=== PATIENT | female | born 1950 | race Caucasian/White ===

== ENCOUNTER 2017-03-24 12:55 | Emergency (ER) | payer MEDICARE, MEDICAID ==
[~2017-03-24 12:55] MED LIST: MEDR4PAK3 PO; ZYRT10TA12 PO
[2017-03-24 13:00] VITALS: BP 123/64; PULSE 92; RESP 20; TEMP 98; O2SAT 97
--- NOTE | 2017-03-24 13:19 | PD ---
HPI Chief Complaint: Musculoskeletal Complaint Time Seen by Provider: 13:00 Travel History International Travel<30 days: No Contact w/Intl Traveler<30days: No Traveled to known affect area: No History of Present Illness HPI 66-year-old female presents to the emergency room for evaluation of left elbow pain for the past 2-3 weeks. Patient states she always opens doors and then stops them with her elbow and believes she may have "done it one too many times. " She reports for the past 3 weeks she has had burning/stinging pain localized to the left distal humerus without radiation. She has been taking Tylenol without any relief in symptoms. States she came in today because she was sick of it hurting. States she has had fractures in the past that don't show up on x -ray and is requesting MRI. Denies paresthesias or loss of range of motion. PFSH Past Medical History High Cholesterol: Yes Cerebrovascular Accident: Yes (2007) Diminished Hearing: No Shingles: Yes (2006) Menopausal: Yes Dilation and Curettage (D&C): Yes Past Surgical History Section: Yes Hysterectomy: Yes (PARTIAL) Social History Alcohol Use: No Tobacco Use: Yes (/ PPD) Substance Use: No Allergies-Medications (Allergen,Severity, Reaction): Coded Allergies: No Known Allergies (Unverified , 03/24/17) Reported Meds & Prescriptions Reported Meds & Active Scripts Active Reported Aspirin 81 (Aspirin) 81 Mg Tabdr 162 Mg PO DAILY Lipitor (Atorvastatin Calcium) 80 Mg Tab 80 Mg PO HS Review of Systems Except as stated in HPI: all other systems reviewed are Neg Physical Exam Narrative GENERAL: Well-nourished, well-developed female in no acute distress. Afebrile. Ambulatory. SKIN: Focused skin assessment warm/dry. No erythema or ecchymosis. HEAD: Normocephalic. EYES: No scleral icterus. No injection or drainage. NECK: Supple, trachea midline. No JVD or lymphadenopathy. CARDIOVASCULAR: Regular rate and rhythm without murmurs, gallops, or rubs. RESPIRATORY: Breath sounds equal bilaterally. No accessory muscle use. MUSCULOSKELETAL: No cyanosis. 2+ pupils. Radial, ulnar, and median nerves intact. Full range motion of the left elbow. No edema. Data Data Last Documented VS Vital Signs Date Time Temp Pulse Resp B/P Pulse Ox O2 Delivery O2 Flow Rate FiO2 03/24/17 13:35 16 03/24/17 13:00 98.0 92 123/64 97 Orders Elbow, Complete (4 Vws) (03/24/17 ) [facility] Medical Decision Making Medical Screen Exam Complete: Yes Emergency Medical Condition: Yes Medical Record Reviewed: Yes Differential Diagnosis Contusion, abrasion, sprain, strain, fracture Narrative Course 66-year-old female presents to the emergency room for evaluation of left elbow pain for the past 3 weeks. States she uses her elbow to catch the door a lot and believes when she used it 3 weeks ago it injured her arm. Left upper extremity is neurovascularly intact with 2+ radial pulse. Full range of motion of the elbow. No specific bony tenderness to palpation, erythema, ecchymosis, or edema. X-ray is negative. Likely epicondylitis or contusion. Jewel wrap applied. Patient told to follow-up with a primary care physician or return for worsening symptoms. She understands and agrees to plan. Diagnosis Primary Impression: Left elbow contusion Referrals: Primary Care Physician Patient Instructions: Contusion in Adults (ED), General Instructions Additional Instructions: Rest and drink plenty of fluids. Take Tylenol as directed, as needed for pain. Jewel wrap and apply ice to the affected area for 20 minutes at a time, as needed for pain and swelling. Follow-up with a primary care physician. Return to the emergency room for worsening symptoms. Med/Other Pt SpecificInfo: Prescription(s) given Disposition: 01 DISCHARGE HOME Condition: Stable Melissa Porter Mar 24, 2017 13:19
[2017-03-24] MEDS ORDERED: ASPI-110 PO (13:39)
[2017-03-24] MEDS ORDERED: LIPI80TA PO (13:39)
--- NOTE | 2017-03-24 13:43 | RADRPT ---
EXAM DATE/TIME: 03/24/2017 13:23 [facility] COMPARISON: No previous studies available for comparison. INDICATIONS : Left elbow pain x 3 weeks after bumped on wall. MEDICAL HISTORY : None. SURGICAL HISTORY : None. ENCOUNTER: Initial ACUITY: 3 weeks PAIN SCORE: 6/10 LOCATION: Left elbow FINDINGS: Multiple view examination of the left elbow demonstrates soft tissue swelling without joint effusion, or fracture. The osseous structures are in normal alignment. Bony mineralization is normal. CONCLUSION: Soft tissue swelling without fracture. Guido Monique MD on March 24, 2017 at 13:40 Board Certified Radiologist. This report was verified electronically.
== END 2017-03-24 14:15 | disposition home or self-care (01) ==
LOC: PHEFT 12:55
DX: S50.02XA Contusion of left elbow, initial encounter (principal); W22.8XXA Striking against or struck by other objects, initial encounter; Y93.89 Activity, other specified; Y92.9 Unspecified place or not applicable
CPT/HCPCS: 73080; 99283

== ENCOUNTER 2018-01-07 10:36 | Emergency (ER) | payer MEDICARE, MEDICAID ==
[~2018-01-07] VITALS: Ht 167.6 cm; Wt 69.0 kg
[~2018-01-07 10:36] MED LIST changes: +ASPI1TAB57 PO; +LIPI80TA PO; -MEDR4PAK3 PO; -ZYRT10TA12 PO
[2018-01-07 10:40] VITALS: BP 128/67; PULSE 90; RESP 16; TEMP 98.6; O2SAT 95
--- NOTE | 2018-01-07 11:36 | PD ---
HPI Chief Complaint: Pain: Acute or Chronic Time Seen by Provider: 10:57 Travel History International Travel<30 days: No Contact w/Intl Traveler<30days: No Traveled to known affect area: No History of Present Illness HPI 67-year-old female here with left rib pain 3 days. She reports she felt a pop and immediate pain to her left lateral ribs when she reached over a chair attempting to reach her cell phone. She denies shortness of breath. The pain is reproducible to palpation of the ribs and deep inspiration. Symptom severity is moderate. Has not attempted any [id number] medications for symptom relief. PFSH Past Medical History Hx Anticoagulant Therapy: Yes (162 ASA DAILY) Cardiovascular Problems: Yes (CHOL) High Cholesterol: Yes Cerebrovascular Accident: Yes (CVA) Coronary Artery Disease: Yes Diabetes: No Diminished Hearing: No Shingles: Yes (2006) Tetanus Vaccination: Unknown Influenza Vaccination: No ?: Not Menopausal: Yes Dilation and Curettage (D&C): Yes Past Surgical History Section: Yes Hysterectomy: Yes (PARTIAL) Social History Alcohol Use: No Tobacco Use: Yes (09/09 PPD) Substance Use: No Allergies-Medications (Allergen,Severity, Reaction): Coded Allergies: No Known Allergies (Unverified Adverse Reaction, Unknown, 01/07/18) Reported Meds & Prescriptions Reported Meds & Active Scripts Active Reported Aspirin 81 (Aspirin) 81 Mg Tabdr 162 Mg PO DAILY Lipitor (Atorvastatin Calcium) 80 Mg Tab 80 Mg PO HS Review of Systems Except as stated in HPI: all other systems reviewed are Neg General / Constitutional: No: Fever Eyes: No: Visual changes HENT: No: Headaches Cardiovascular: No: Chest Pain or Discomfort Respiratory: No: Shortness of Breath Physical Exam Narrative GENERAL: Alert and well-appearing 67-year-old female SKIN: Warm and dry. HEAD: Normocephalic. EYES: No injection or drainage. NECK: Supple CARDIOVASCULAR: Regular rate and rhythm. + Tenderness to the left anterior ribs. No palpable fracture or crepitus. RESPIRATORY: Breath sounds equal bilaterally. No accessory muscle use. Even and equal chest rise GASTROINTESTINAL: Abdomen soft, non-tender, nondistended. MUSCULOSKELETAL: No cyanosis, or edema. BACK: Nontender without obvious deformity. No CVA tenderness. Data Data Last Documented VS Vital Signs Date Time Temp Pulse Resp B/P (MAP) Pulse Ox O2 Delivery O2 Flow Rate FiO2 01/07/18 10:40 98.6 90 16 128/67 (87) 95 Orders Orders Ribs, Uni (W/Exp Cxr-Min 3vw) (01/07/18 ) [facility] Medical Decision Making Medical Screen Exam Complete: Yes Emergency Medical Condition: Yes Differential Diagnosis Rib contusion, fracture, pneumothorax Narrative Course 67-year-old female with left rib pain 4 days. Pain is reproducible. X-ray is negative for fracture, pneumothorax, acute abnormality. Findings were discussed with patient. She is stable and ready for discharge Diagnosis Primary Impression: Rib contusion Qualified Codes: S20.212A - Contusion of left front wall of thorax, initial encounter Referrals: Primary Care Physician Additional Instructions: Pain medication as directed. Avoid heavy lifting or strenuous activity. Follow-up with her primary doctor. Disposition: 01 DISCHARGE HOME Condition: Stable Mckayla Mares January 07, 2018 11:36
--- NOTE | 2018-01-07 11:43 | RADRPT ---
EXAM DATE/TIME: 01/07/2018 11:22 [facility] COMPARISON: No previous studies available for comparison. INDICATIONS : No known injury. Patient said she was reaching over a chair and woke up this morning with pain under left breast. MEDICAL HISTORY : Stroke. SURGICAL HISTORY : None. ENCOUNTER: Initial ACUITY: 1 day PAIN SCORE: 7/10 LOCATION: Left Ribs FINDINGS: Multiple views of the left ribs were performed. There is no evidence of displaced fracture. No dest ructive lesions or areas of periosteal thickening are seen. Expiratory view of the chest is negative for pneumothorax. The mediastinal structures are midline. There is some mild platelike atelectasis in the left lung base. There is chronic interstitial changes bilaterally. There is some scoliosis and curvature of the thoracic spine to the right and lumbar spine to the left. CONCLUSION: 1. No definite rib fractures are demonstrated. 2. Mild platelike atelectasis in the left lung base. 3. Chronic bilateral interstitial lung changes. Evens Shane MD on January 07, 2018 at 11:39 Board Certified Radiologist. This report was verified electronically.
== END 2018-01-07 12:16 | disposition home or self-care (01) ==
LOC: PHEFT 10:36
DX: S20.219A Contusion of unspecified front wall of thorax, initial encounter (principal); X50.9XXA Other and unspecified overexertion or strenuous movements or postures, initial encounter; E78.00 Pure hypercholesterolemia, unspecified; I25.10 Atherosclerotic heart disease of native coronary artery without angina pectoris; F17.200 Nicotine dependence, unspecified, uncomplicated; Z86.73 Personal history of transient ischemic attack (TIA), and cerebral infarction without residual deficits
CPT/HCPCS: 71101; 99283